=== PATIENT | male | born 1950 | race Native Hawaiian/Other Pacific Islander ===

== ENCOUNTER 2018-06-14 06:47 | Day surgery (SDC) | payer MEDICARE, OTHER ==
[2018-06-07 11:47] VITALS: BMI 25.8
[2018-06-14] MEDS ORDERED: Iodixanol 320 MG/ML 100 ML BOTTLE IV ONE ×2 (08:56→11:52)
[2018-06-14] MEDS ORDERED: Iodixanol 320 MG/ML 200 ML BOTTLE IV ONE (08:56)
[2018-06-14] MEDS ORDERED: Lidocaine 2% PF (10 ml) Amp ONE (08:56)
[2018-06-14] MEDS: Midazolam 2 MG/2 ML VIAL ONE ×10 (10:44→16:06)
[2018-06-14] MEDS: Nitroglycerin 50mg in D5W 50 MG/250 ML BOTTLE IV ONE ×2 (11:37→15:42)
[2018-06-14] MEDS ORDERED: Oxycodone/Acetaminophen 5/325 mg Tab PO PRN (14:09)
[2018-06-14] MEDS ORDERED: INSULIN ASPART RECOMBINANT SC PRN (14:09)
[2018-06-14] MEDS ORDERED: Metoprolol Succinate 100 mg XL Tab PO PRN (14:09)
[2018-06-14 16:58] VITALS: O2SAT 98
[2018-06-14] MEDS: Insulin Lispro (humaLOG) LOW Coverage SC SCH ×2 (17:44→22:00)
[2018-06-14] MEDS: NIACIN 500 MG PO SCH (17:45)
[2018-06-14] MEDS: Metoprolol Succinate 100 mg XL Tab PO SCH (17:46)
[2018-06-14] MEDS: Pantoprazole 40 mg EC Tab PO SCH (17:46)
--- NOTE | 2018-06-14 18:29 | VASCULAR ---
PROCEDURE: 1. Abdominal aortogram and bilateral lower extremity runoff with bilateral punctures 2. Left common and external iliac artery angioplasty and stent graft placement. HISTORY: Peripheral vascular disease with severe left lower extremity claudication. PHYSICIAN(S): MD Prabhjot Christian M.D. TECHNIQUE: The relative risks and indications of the procedure were explained to the patient and consent obtained. The patient was hydrated prior to the procedure and the appropriate labs drawn. The patient was placed supine on the arteriogram table and both groins prepped and draped in the usual sterile fashion. Conscious sedation and monitoring were provided throughout the procedure by a nurse. Via a right common femoral artery approach, a 5 Vincentian sheath was placed in the right groin. Through the sheath and over a guidewire, a 5 Vincentian flush catheter was placed in the abdominal aorta at the level of the renal arteries and a PA DSA abdominal aortogram performed. Pull-back pressures were obtained in the abdominal aorta at the level renal arteries. The catheter was pulled down to the aortic bifurcation and bilateral oblique DSA pelvic arteriograms performed. Overlapping bilateral lower extremity DSA arteriograms were obtained from the inguinal ligaments to the feet. 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 Re-entry could not be obtained at the level of the inguinal ligament. The left common femoral artery was punctured under ultrasound guidance to just above the bifurcation. Retrograde attempt at crossing the left external iliac artery dissection was also unsuccessful. Numerous catheters and various guidewires were utilized in attempt to gain re-entry. A 4-8 mm snare was placed and once again could not be recannulized. Finally an out back catheter was utilized along with a snare in order to obtain control of a 0.014 guidewire from both groins. A 0.018 support wire was placed the length of the occlusion was measured with a marker catheter. A 6 mm x 150 mm Viabahn stent graft was placed from the distal left common iliac artery to the inguinal ligament. It was dilated with a 6 mm balloon. Completion angiograms were obtained. A Perclose was placed at the right groin puncture site and a a Mynx device was placed at the left groin puncture site. The patient tolerated the procedure well. FINDINGS: Few smooth calcification is noted. There is a patent balloon expandable stent at the origin of the left renal artery. A 50 percent stenosis of the proximal right renal artery is seen. The nephrograms are symmetric. The ER bifurcation is patent. The common iliac arteries are smoothly disease bilaterally and small. Patent stents are noted in the right external iliac system. 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 There is high-grade stenosis of the origin of the right internal iliac artery. There is a short segment occlusion of the proximal left internal iliac artery. The infrarenal runoff demonstrates small arteries that are smoothly disease without radiographically significant stenosis. There is bilateral trifurcation and tibial disease. On the right, there is single vessel runoff via the right anterior tibial artery. On the left, there is 2 vessel runoff via the left posterior tibial and peroneal arteries. IMPRESSION: 1.Left common and external iliac artery angioplasty and stent graft placement 2. Bilateral tibial disease
[2018-06-14 22:03] VITALS: TEMP 98.6
[2018-06-14 23:43] VITALS: RESP 20
[2018-06-15] MEDS: Sodium Chloride 0.45% 1,000 ML IV SCH ×2 (03:00→04:00)
[2018-06-15 07:18] LABS: HEMOGLOBIN 11.7 g/dL (14.0-18.0); MEAN CELL VOLUME 90.6 fl (80.0-105.0); MEAN CORPUSCULAR HEMOGLOBIN 28.9 pg (25.0-35.0); MEAN CORPUSCULAR HGB CONC 31.9 g/dl (31.0-37.0); RBC 4.05 10^6/uL (3.5-6.1); RED CELL DISTRIBUTION WIDTH 13.9 % (11.5-14.5)
[2018-06-15 07:33] LABS: CALCIUM 8.4 mg/dL (8.4-10.5)
[2018-06-15] MEDS: Insulin Lispro (humaLOG) LOW Coverage SC SCH ×2 (07:39→12:27)
[2018-06-15] MEDS: Metoprolol Succinate 100 mg XL Tab PO SCH (07:40)
[2018-06-15] MEDS: Pantoprazole 40 mg EC Tab PO SCH (09:08)
[2018-06-15 09:09] VITALS: BP 113/55
[2018-06-15] MEDS: NIACIN 500 MG PO SCH (09:09)
[2018-06-15] MEDS ORDERED: Influenza Vaccine 60 mcg/0.5 mL SYR (4YR UP) IM ONE (09:40)
[2018-06-15] MEDS ORDERED: Pneumococcal 23-Valent Vaccine IM ONE (09:41)
[2018-06-15] MEDS ORDERED: SACUBITRIL 24mg/VALSARTAN 26mg tab PO SCH (10:00)
[2018-06-15 10:15] VITALS: PULSE 58
== END 2018-06-15 12:28 | disposition home or self-care (01) ==
LOC: CATH 06:47 → EDUNIT# 10:00 → 2RSO 15:05 → CATH 06-15 12:28
PROVIDERS: ATTEND Internal Medicine Cardiovascular Disease
DX: I74.5 Embolism and thrombosis of iliac artery (principal); I73.9 Peripheral vascular disease, unspecified